=== PATIENT | male | born 1995 | race Two or more races ===

== ENCOUNTER 2021-01-25 20:47 | Emergency (ER) | payer MEDICAID ==
[~2021-01-25] VITALS: Ht 170.2 cm; Wt 81.6 kg
[2021-01-25 20:49] VITALS: BP 127/76
[2021-01-25 23:58] LABS: Basophils # (auto) 0 10 ^3/uL (0-0.2); Eosinophils # (auto) 0 10 ^3/uL (0-0.8); Lymphocytes # (auto) 0.5 10 ^3/uL (0.4-5.4); Monocytes # (auto) 0.2 10 ^3/uL (0-1.3); White Blood Cell 8.9 10^3/uL (4.4-10.8)
[2021-01-25 23:59] LABS: Basophils % (auto) 0.1 % (0.0-2.0); Hematocrit 44.9 % (41.0-53.0); Hemoglobin 15.3 g/dL (13.5-17.5); Lymphocytes % (auto) 5.1 % (10.0-50.0); Mean Corpuscular Hemoglobin 34.2 pg (28.0-32.0); Mean Corpuscular Hgb Conc. 34.1 g/dL (32.0-36.0); Mean Corpuscular Volume 100.4 fL (80.0-100.0); Monocytes % (auto) 2.3 % (0.0-12.0); Neutrophils # (auto) 8.3 10 ^3/uL (1.6-8.6); Neutrophils % (auto) 92.5 % (37.0-80.0); Nucleated Red Blood Cells % 0.1 %; Red Blood Cells 4.48 10^6/uL (4.5-5.90)
[2021-01-26 00:18] LABS: Albumin 4.2 g/dL (3.4-5.0); Calcium 8.9 mg/dL (8.5-10.1); Potassium 3.8 mmol/L (3.5-5.1)
[2021-01-26 00:20] LABS: BUN/Creatinine Ratio 12.5
[2021-01-26 00:23] LABS: Bilirubin, Total 1.1 mg/dL (0.2-1.0); Total Protein 8.5 g/dL (6.4-8.2)
== END 2021-01-26 04:13 | disposition left against medical advice (07) ==
LOC: ER 20:47
DX: R22.0 Localized swelling, mass and lump, head (principal); K08.89 Other specified disorders of teeth and supporting structures; Z53.21 Procedure and treatment not carried out due to patient leaving prior to being seen by health care provider
CPT/HCPCS: 36415; 70486; 80053; 83605; 85025; 87040

== ENCOUNTER 2022-08-11 23:51 | Emergency (ER) | payer MEDICAID ==
[~2022-08-11] VITALS: Ht 177.8 cm; Wt 79.5 kg
[2022-08-11 23:55] VITALS: BP 127/77
[2022-08-12 00:26] LABS: Eosinophils # (auto) 0.1 10 ^3/uL (0-0.8); Eosinophils % (auto) 0.6 % (0.0-7.0); Monocytes # (auto) 0.4 10 ^3/uL (0-1.3); Monocytes % (auto) 2.7 % (0.0-12.0); Neutrophils # (auto) 11.2 10 ^3/uL (1.6-8.6); Red Cell Distribution Width 13.5 % (11.8-14.3)
[2022-08-12 00:27] LABS: Basophils # (auto) 0.1 10 ^3/uL (0-0.2); Basophils % (auto) 0.4 % (0.0-2.0); Hematocrit 42.1 % (41.0-53.0); Hemoglobin 14.1 g/dL (13.5-17.5); Lymphocytes # (auto) 3.4 10 ^3/uL (0.4-5.4); Lymphocytes % (auto) 22.6 % (10.0-50.0); Mean Corpuscular Hemoglobin 34.3 pg (28.0-32.0); Mean Corpuscular Hgb Conc. 33.6 g/dL (32.0-36.0); Neutrophils % (auto) 73.7 % (37.0-80.0); Nucleated Red Blood Cells % 0.1 %; Red Blood Cells 4.12 10^6/uL (4.5-5.90); White Blood Cell 15.2 10^3/uL (4.4-10.8)
[2022-08-12 00:50] LABS: Albumin 4.2 g/dL (3.4-5.0); BUN/Creatinine Ratio 5.4 (10.0-20.0); Calcium 8.4 mg/dL (8.5-10.1)
[2022-08-12 00:52] LABS: Bilirubin, Total 0.6 mg/dL (0.2-1.0); Total Protein 7.9 g/dL (6.4-8.2)
[2022-08-12] MEDS ORDERED: POTASSIUM CHL 20MEQ/100ML 100 ML IV SCH (02:15)
[2022-08-12] MEDS ORDERED: SODIUM CHLORIDE 0.9% 1,000 ML IV ONE (02:15)
[2022-08-12] MEDS ORDERED: IBUP800T26 PO (02:32)
[2022-08-12] MEDS ORDERED: FOLIC ACID 1 MG, MULTIPLE VITAMIN 10 ML, MAGNESIUM SULF SDV 50% 8 MEQ, THIAMINE INJ 100... INJ ONE ×5 (12:00)
== END 2022-08-12 02:44 | disposition home or self-care (01) ==
LOC: ER 23:51
DX: S01.01XA Laceration without foreign body of scalp, initial encounter (principal); F10.129 Alcohol abuse with intoxication, unspecified; Y90.8 Blood alcohol level of 240 mg/100 ml or more; Y08.89XA Assault by other specified means, initial encounter; Y93.89 Activity, other specified; Y92.89 Other specified places as the place of occurrence of the external cause; Y99.8 Other external cause status
CPT/HCPCS: 12001; 36415; 70450; 80053; 80320; 85025; 96372

== ENCOUNTER 2022-08-22 15:33 | Emergency (ER) | payer MEDICAID ==
[~2022-08-22] VITALS: Ht 180.3 cm; Wt 86.0 kg
[~2022-08-22 15:33] MED LIST: IBUP-1455 PO
[2022-08-22 16:22] VITALS: BP 139/79
[2022-08-22] MEDS ORDERED: MUPI2OIN2 EX (16:37)
== END 2022-08-22 17:14 | disposition home or self-care (01) ==
LOC: ER 15:33
DX: S01.01XD Laceration without foreign body of scalp, subsequent encounter (principal); Z88.6 Allergy status to analgesic agent; X58.XXXD Exposure to other specified factors, subsequent encounter

== ENCOUNTER 2022-08-23 16:54 | Emergency (ER) | payer MEDICAID ==
[~2022-08-23] VITALS: Ht 177.8 cm; Wt 85.2 kg
[~2022-08-23 16:54] MED LIST changes: +MUPI2OIN2 EX
[2022-08-23 17:12] VITALS: BP 131/96
== END 2022-08-23 17:29 | disposition home or self-care (01) ==
LOC: ER 16:54
DX: S01.81XD Laceration without foreign body of other part of head, subsequent encounter (principal); X58.XXXD Exposure to other specified factors, subsequent encounter